=== PATIENT | female | born 1990 | race Caucasian/White ===

== ENCOUNTER 2022-06-14 12:21 | Outpatient (CLI) | payer OTHER, SELFPAY ==
[2022-06-14 12:45] VITALS: TEMP 36.8; O2SAT 98
[2022-06-14 12:46] VITALS: BP 121/70; PULSE 79
--- NOTE | 2022-06-14 14:22 | CRLHL7_ITS ---
For Patients: As a result of the Century Cures Act, medical imaging exams and procedure reports are released immediately into your electronic medical record. You may view this report before your referring provider. If you have questions, please contact your health care provider. INDICATION: reassurance. TECHNIQUE: Ultrasound OB pelvis transabdominal. Real-time marin-scale imaging of the fetus was performed without stress testing. COMPARISON: None. FINDINGS: Sonographic imaging demonstrates a single living intrauterine gestation. Fetus demonstrates a regular cardiac rate of 141 beats per minute. Fetus has a cephalic orientation. Amniotic fluid volume appears normal. Single deepest pocket measures 5.6 cm. breathing movements, motion, and tone were all observed. IMPRESSION: Single viable intrauterine with a biophysical profile 05/21. Dictated by Suresh Sinha MD @ 06/14/2022 3:43:50 PM (Electronically Signed)
[2022-06-14 14:34] VITALS: BP 115/66; PULSE 75
[2022-06-14 15:23] LABS: Amphetamine Screen Urine Negative (Negative); Barbiturate Screen Urine Negative (Negative); Benzodiazepines Screen Urine Negative (Negative); Cannabinoid Screen Urine Negative (Negative); Cocaine Screen Urine Negative (Negative); Methadone Screen Urine Negative (Negative); Methamphetamines Screen Urine Negative (Negative); Opiate Screen Urine Negative (Negative); Oxycodone Screen Urine Negative (Negative); Phencyclidine Screen Urine Negative (Negative); Tricyclic Antidepressant Urine Negative (Negative)
--- NOTE | 2022-06-14 15:26 | P.OBT_ITS ---
History of Present Illness History of Present Illness Date Seen: 06/14/22 History of Present Illness: TRANSFER OBSTETRICAL EXAM - OB? Sasha is a 31yo G 2, P 0, here today for her transfer Obstetrical visit. She is transferring from [facility] in [place]. Records are not here. Her initial NOB exam was performed by on 11/17/2021 and she has received routine care throughout her .?Her has mostly been uncomplicated. She has a history of one miscarriage around 7 weeks 06/2021. She had a yeast and bacterial infection 4 weeks ago, was treated with antibiotics and Monistat and her test of cure was negative. She is GBS+. She has a history of exercise asthma and has not needed her inhaler since the first trimester. She has anxiety that is well controlled with medication. She was in the clinic with her previous care provider yesterday where that had a non-reassuring NST. She was sent to L&D for a BPP and evaluation. While on the monitor there it was noted that she had one deceleration. Per the MD note it was a prolonged appearing late decel, FHT then retuned to baseline 130 mod leonor +accels. She was told she needed to induced. She desired not to have an AROM and Pitocin induction at that time and requested to try to induce labor naturally. She was 4-5cm/80%/-1 per the provider note. Per the phonograph mechanic notes after a few hours the patient continues to decline any induction options and desired to go home. She signed AMA paperwork. No BPP was preformed at that facility. On admission to this facility she was still 4cm/80%/-2. Contractions were mild and pt able to talk thought them. NST was reactive and BPP was 8/8. Pt given option to start for induction or discharge. She was reassured with no cervical change, the BPP, and reactive NST and she choose to discharge with labor precautions reviewed. She desires transfer of care here for the remainder of her and delivery. ? ? Planned : Planned? ? ? Allergies: latex (rash and swelling, itchy)? PrePregnancy weight: 166lb? Current Medications: Lexapro, PNV, Pepcid? SOCIAL? ? Education: bachelors? ? Work: senior corporate accountant? ? Partner: Rony (stay at home)? ? Lives with: and his brother? ? Pets: none? ? Abuse: Denies past/present? ? Special Diet: Denies? ? Ok with a blood transfusion: yes? ? Culture or jewish beliefs: denies? RISK FACTORS? ? Exercise Times/wk: walks 5 times per week? ? Depression/Anxiety: anxiety on Lexapro? ? Seat Belt Use: Routinely ? Smoking: Denies past/present? ? Alcohol/day: Denies while ? ? Caffeine: tea daily? ? Drug Use: Denies past/present? ? MRSA: Denies? Plan for feeding baby: yes ? ?? OB Labs:? ? Blood type: O+, antibody screen negative.? ? Hgb (11/22/21): 13.0? ? Platelets (11/22/21): 335? ? Rubella: Immune? ? RPR: non-reactive? ? HBsAg: negative? ? HIV: negative? ? GC/Chlamydia: negative/negative? ? Pap (11/17/21): negative? ? Genetic screening: NIPT negative? 1hr gtt: declined. tested BS x1 week. Fasting max 90x1. PP one at 160 the rest 83-128.? ? GBS (06/01/22): positive? Hep C (11/22/21): negative? ?? IMAGING:? ? 1st trimester: 11/17/21at 9.5 weeks per US, 9.3 per LMP (09/12/2021). FHR 175? ? Anatomy scan: 01/24/2022. FHR 150, cervical length 3.8, EFW 295 grams, grossly normal? ? Others: none? ? Transfer Assessment and Plan:? ASSESSMENT /PLAN? ? G 2 P 0 at 39.2 weeks by LMP? ? Normal Transfer visit.? ? Return to office in 1 weeks? ? Records received and reviewed? ?? Transfer Ob teaching reviewed, including:? ? How the practice works? ? OB Schedule - Visits/tests? ? Vitamins? ? -PNV w/ DHA or add fish oil? ? -calcium? ? -Vitamin D (2,000-4,000 IU)? ? -Vitamin C 500 if smoking? ? Warnings/when to call? ? -Bleeding? ? -vomiting/diarrhea? ? -UTI/Vaginal infections? ? -fever? ? -swelling/blood clot? ? -trauma? ? Baby moving naturally: Yes (decreased in size of movements but still feeling movements) Bleeding: No Contractions: Yes Leaking fluid: No Discharge: No Heartburn: Yes (pepcid) Back pain: No Meds Home Medications and Allergies Home Medications Medication Instructions Recorded Confirmed Type escitalopram oxalate 20 mg tablet 20 mg PO DAILY 06/14/22 06/14/22 History (Lexapro) famotidine 20 mg tablet (Acid 20 mg PO DAILY 06/14/22 06/14/22 History Advice Nurse (famotidine)) Allergies Allergy/AdvReac Type Severity Reaction Status Date / Time latex Allergy Intermediate Rash Verified 06/14/22 16:53 PFSH Surgical History (Updated 06/14/22 @ 15:51 by Kenzie Burton CNM) History of eye surgery Hx of LASIK [place] teeth extracted Family History (Updated 06/14/22 @ 15:54 by Kenzie Burton CNM) Maternal Grandmother Diabetes Stroke Kidney problem Maternal Grandfather Diabetes Paternal Grandfather Lazy eye Mother Healthy adult Social History (Updated 06/14/22 @ 16:51 by Kenzie Burton CNM) Are you following a diet prescribed by a doctor: No Are you following a special diet: No Previous occupational history: senior corporate accountant Highest level of school completed/degree received: Bachelor's degree Physical activity type: walking How many days of moderate to strenuous exercise, like a brisk walk, did you do in the last 7 days: 5 Smoking Status: Never smoker Caffeine: Yes (lass than 100mg per day) History History 2 Elective abortions Para 0 Spontaneous abortions Hx # Term Pregnancies Ectopic pregnancies Hx # Pregnancies Multiple births Number of Living Children 0 OB - H&P: Exam Physical Exam Vital signs: Temp Pulse BP Pulse Ox 98.3 F 75 115/66 98 06/14/22 12:45 06/14/22 14:34 06/14/22 14:34 06/14/22 12:45 Constitutional Constitutional: no acute distress Routine HEENT Exam Head: Present normal inspection Eye: Present normal appearance ENT: Present normal exam and normal external ear exam Routine Neck Exam Neck: Present full ROM Routine Respiratory Exam Respiratory: Present CTA bilaterally Routine Cardiovascular Exam Cardiovascular: RRR Routine Exam Perineum Description: Normal Detailed Labor and Delivery Exam Patient Gravid: yes Dilation (cm): 4 Effacement (%): 80 Cervix position: posterior (off to the right) Consistency: medium Contraction frequency (min): 5 (5-7 per pt report. feels them as tightening with baby movements) Tachysystole: No Contraction intensity: Mild Fetus (Single) Station: -2 Heart Rate Baseline: 135 Monitor Accelerations: Present Monitor Decelerations: None Robotics Specialist Variability: Moderate (11-25) (6-25) Routine Extremities Exam Extremities: Present full ROM Routine Back/Spine/Pelvis Exam Back/Spine: full ROM Routine Neurological Exam Present alert and oriented X3 Routine Psychiatric Exam Present normal affect and normal thought process Results Labs Laboratory Tests 06/14/22 06/14/22 06/14/22 Range/Units 14:52 14:52 14:52 WBC Pending RBC Pending Hgb Pending Hct Pending MCV Pending MCH Pending MCHC Pending Plt Count Pending Urine Opiates Screen Negative (Negative) Ur Oxycodone Screen Negative (Negative) Urine Methadone Screen Negative (Negative) Ur Propoxyphene Screen Negative (Negative) Ur Barbiturates Screen Negative (Negative) U Tricyclic Antidepress Negative (Negative) Ur Phencyclidine Scrn Negative (Negative) Ur Amphetamines Screen Negative (Negative) U Methamphetamines Scrn Negative (Negative) U Benzodiazepines Scrn Negative (Negative) Urine Cocaine Screen Negative (Negative) U Marijuana (THC) Screen Negative (Negative) Hepatitis C Antibody Pending Assessment and Plan Assessment and plan (1) Supervision of normal in third trimester: Status: Acute Assessment and Plan: Discharge home. Labor signs reviewed. Mode of transport: Private Car Plan at 39.2 weeks Transfer of care
[2022-06-14 16:08] LABS: Hematocrit 36.7 % (33.0-51.0); Hemoglobin* 12.2 gm/dL (12.0-16.0); Mean Corpuscular HGB Conc 33 gm/dL (32-36); Mean Corpuscular Hemoglobin 32 pg (26-34); Mean Corpuscular Volume 96 fL (80-100); Platelet Count* 322 K/uL (140-440); Red Blood Count 3.84 m/uL (4.00-5.20); Slide Review Reflex No; White Blood Count* 9.89 K/uL (4.50-11.00)
--- NOTE | 2022-06-14 16:54 | PC.OBNST ---
NST Note NST Note Start: 06/14/22 12:32 Freq: ONCE Status: Active Protocol: Document 06/14/22 15:39 [facility] (Rec: 06/14/22 15:43 [facility] [id number]) NST Note 2 Para (# of births) 0 EDC 06/19/22 Gestational Age In Weeks & Days 39 Weeks & 2 Days Patient Presented with Complaint(s) of Contractions/cramping, Decreased movement,Other Other Complaints Pt had non-reassuring NST at [place] on 06/13/2022. BPP performed after reactive NST obtained on 06/14/2022 Reactive Yes Appropriate for Gestational Age Yes RONNIE Wilson RN Date 06/14/22 Reactive Yes Appropriate for Gestational Age Yes RONNIE Snow RNC Date 06/14/22 OB NST charge Yes Complete NST Note via Write Note Yes The provider's electronic signature indicates the NST is reactive/appropriate for gestational age. *Note to provider: If an addendum is required, open the patient's chart and click on the note under the Nurse/Allied Health tab.
[2022-06-14 17:48] LABS: Hepatitis C Virus Antibody* Negative (Negative)
== END 2022-06-14 16:32 | disposition home or self-care (01) ==
LOC: OB OUT 12:26 → OB 12:34
PROVIDERS: Advanced Practice Midwife; Visit Provider Advanced Practice Midwife
DX: Z34.93 Encounter for supervision of normal pregnancy, unspecified, third trimester (principal)
CPT/HCPCS: 36415; 59025; 76819; 80306; 85027; 86803; 86850; 86900; 86901; 99213

== ENCOUNTER 2022-06-16 17:21 | Inpatient (IN) | payer OTHER, SELFPAY ==
[2022-06-16] VITALS (7 sets, daily range): BP systolic 110–126; BP diastolic 63–74; PULSE 71–96; RESP 18–22; TEMP 36.8–37.2; O2SAT 100
[2022-06-16] MEDS: AMPICILLIN 2 GM in 0.9 % SODIUM CHLORIDE Mini-bag 100 ML IVPB (17:29)
[2022-06-16] MEDS: LACTATED RINGERS 1000 ML 1,000 ML 125 ML IV (17:36)
[2022-06-16] MEDS: ONDANSETRON 2 MG/ML inj 4 MG IV ×2 (17:48→22:08)
--- NOTE | 2022-06-16 18:09 | P.LDBA_ITS ---
Subjective History of Present Illness Time Seen by Provider: 17:40 Date Seen: 06/16/22 Narrative: Patient is being admitted to Labor and Delivery for spontaneous onset of labor. She is a 32 year old at 39.4 weeks gestation. She transferred from [facility] two days ago. Her H&P was documented then by Leelee Burton CNM. Please see this for further details. Records have been received and reviewed and documented in her H&P. She is hoping for a waterbirth, at this time the room is occupied. OB Problem List: 1. Late transfer of care 39.2 weeks 1. Asthma-exercise induced (no inhaler since 1st trimester) 3. Latex allergy 4. Anxiety-on Lexapro OB Labs:? ? Blood type: O+, antibody screen negative.? ? Hgb (11/22/21): 13.0? ? Platelets (11/22/21): 335? ? Rubella: Immune? ? RPR: non-reactive? ? HBsAg: negative? ? HIV: negative? ? GC/Chlamydia: negative/negative? ? Pap (11/17/21): negative? ? Genetic screening: NIPT negative? 1hr gtt: declined. tested BS x1 week. Fasting max 90x1. PP one at 160 the rest 83-128.? ? GBS (06/01/22):?positive? Hep C (11/22/21): negative? ?? IMAGING:? ? 1st trimester: 11/17/21at 9.5 weeks per US, 9.3 per LMP (09/12/2021). FHR 175? ? Anatomy scan: 01/24/2022. FHR 150, cervical length 3.8, EFW 295 grams, grossly normal? ? Others: none? OB - H&P: Exam Physical Exam: Vital signs: Temp Pulse BP Pulse Ox 98.2 F 74 114/63 100 06/16/22 17:25 06/16/22 18:06 06/16/22 18:06 06/16/22 17:25 Constitutional: Constitutional: moderate distress Routine Neck Exam: Neck: Present full ROM Detailed Neck Exam: Thyroids: Comments: Supple Routine Respiratory Exam: Respiratory: Present CTA bilaterally Routine Cardiovascular Exam: Cardiovascular: RRR Detailed Labor and Delivery Exam: Patient Gravid: yes Dilation (cm): 7 (Exam per RN) Effacement (%): 100 Cervix position: mid Contraction frequency (min): 3 Contraction duration (sec): 90 Tachysystole: No Contraction intensity: Moderate Fetus (Single): Station: -2 Heart Rate Baseline: 135 Monitor Accelerations: Present Monitor Decelerations: None Document Manager Variability: Moderate (11-25) Routine Extremities Exam: Extremities: Present full ROM and normal inspection Routine Back/Spine/Pelvis Exam: Back/Spine: full ROM Routine Skin Exam: Present intact Routine Neurological Exam: Present alert, oriented X3, moving all extremities and normal speech Routine Psychiatric Exam: Present normal affect and good judgment OB - Problem Based A/P Additional Plan (1) Normal labor: Status: Acute (2) Group B streptococcal infection during : Status: Acute (3) Anxiety: Problem details: 20mg Lexapro. Ativan PRN (not used in ). Status: Acute (4) Asthma: Problem details: Inhaler not used since 1st trimester Status: Acute Plan ASSESSMENT:? 30 at 39 4/7 weeks gestation? complicated by:?Anxiety & Asthma (exercise induced) Labor type: Spontaneous, Active labor? Category 1 FHR pattern.?? Labor complicated by: GBS + GBS positive? ? PLAN:? 1. Admit to Labor and Delivery. Routine intrapartum cares as ordered. Continue with expectant management? 2. Monitoring per policy, intermittent after reassuring NST? 3. Planning unmedicated . Desires water . Consent signed. Hep C negative. Candidate for analgesia of choice if desired. Will plan for labor management in standard tub and get out of delivery if necessary. If possible, will move her to waterbirth room when avaliable. 4. Patient encouraged to reposition and ambulate to promote physiologic labor and .? 5. GBS phrophylaxis initiated for GBS positive status. Will treat with antibiotics per protocol. 6. Anticipate ? Delivery/Labor/Induction Plan Plan: expectant management
[2022-06-16 19:33] LABS: SARS PCR* Negative SARS-CoV-2 (Negative)
[2022-06-16] MEDS: AMPICILLIN 1 GM in 0.9 % SODIUM CHLORIDE Mini-bag 100 ML IVPB (21:28)
--- NOTE | 2022-06-16 22:46 | PM.OBPNL ---
Pain Control Date Seen: 06/16/22 Pain control: tolerating well Comments: Sasha is coping WELL with labor pain/contractions. She is currently being supported by and chiropractic. Understands the current plan of care. Questions answered to her satisfaction. Reports concerns regarding: interested in waterbirth, wondering if tub room is avaliable. She would like to continue with positioning and tub for comfort and pain management. Contractions Monitor mode: Palpation Contraction frequency: 3 Contraction pattern: Regular Contraction intensity: Moderate Pelvic Exam Comments: Deferred at this time Fetus (Single) Comments: Intermittent Monitoring: reassuring Assessment and Plan Assessment: active labor Plan: continue present management Comments: ASSESSMENT:? 30 at 39 5/7 weeks gestation? complicated by:?Asthma and Anxiety Labor type: Spontaneous, Active labor? Intermittent Auscultation: reassuring Labor complicated by: GBS +? GBS positive? ? PLAN:? 1. Routine intrapartum cares as ordered. Continue with expectant management? 2. Monitoring per policy, intermittent? 3. Planning unmedicated . Desires water . Consent signed. Hep C negative. Candidate for analgesia of choice if desired. Room for waterbirth just cleaned, patient transferring to tub room for possible waterbirth.?? 4. Patient encouraged to reposition and ambulate to promote physiologic labor and .? 5. GBS prophylaxis initiated for GBS positive status. Will treat with antibiotics per protocol. 6. Anticipate ?
[2022-06-17] VITALS (18 sets, daily range): BP systolic 111–143; BP diastolic 65–81; PULSE 68–102; RESP 16–22; TEMP 36.6–37.4; O2SAT 98–99; BMI 31.1
--- NOTE | 2022-06-17 00:35 | PM.OBPNL ---
Pain Control Time Seen by Provider: 23:00 Date Seen: 06/16/22 Pain control: tolerating well Comments: Subjective: Sasha is coping well with labor contractions. She is currently being supported by her Rony & friend/chiropractor Jonelle. Understands the current plan of care. Questions answered to her satisfaction. Reports concerns regarding: pain and pushing, reviewed options and encouragement given. She would like to continue with hydrotherapy and position changes for comfort and pain management.?? Contractions Monitor mode: Palpation Contraction frequency: 3 (q2-3 min, 90seconds long) Contraction pattern: Regular Contraction intensity: Moderate Pelvic Exam Comments: Offered cervical exam to check for progress/change, pt declines at this time Fetus (Single) Comments: Discussed option for AROM to facilitate labor progression, pt declines at this time Assessment and Plan Assessment: active labor Plan: continue present management Comments: ASSESSMENT:? 30 at 39 weeks 4days gestation? complicated by:?Anxiety & Asthma Labor type: Spontaneous, Active labor? FHR reassuring by intermittent doppler?? Labor complicated by: GBS+? GBS positive? PLAN:? 1. Routine intrapartum cares as ordered. Continue with expectant management? 2. Monitoring per policy, intermittent? 3. Planning unmedicated . Desires water . Consent signed. Hep C negative. Candidate for analgesia of choice.?? 4. Patient encouraged to reposition and ambulate to promote physiologic labor and .? 5. Offered cervical exam and/or AROM to encourage labor after 6 hours of active labor - with most recent exam 7cm @ 1700. Discussed risk of fatigue, stress or vague feeling of pressure or diminished urge with bulging bag. Reviewed that a cervical exam could help identify position, to assist with positions or identify reasons for stalled labor. Pt Declines at this time. 6. Anticipate ? ?
[2022-06-17] MEDS: OXYTOCIN 10 UNIT/ML INJ IM (02:51)
[2022-06-17] MEDS: LIDOCAINE 1% MDV 20 ML INJECTION (03:30)
--- NOTE | 2022-06-17 03:47 | P.OBPRC_ITS ---
Procedure Delivery date: 06/17/22 Procedure Done: Global (Recent transfer) Intrapartal Events: Other (Protracted active stage labor) Delivery monitor: external FHT (Intermittent Doppler) Route of delivery: Laceration description: Perineal - 2nd Degree (repaired with 3.0 Vicryl) Delivery repair: Vicryl (3.0) Estimated blood loss (mL): 320 (QBL 20, EBL 300) Anesthesia type: None Disposition: floor Narrative: The patient is a 32 year old G2 now P1 at 39 weeks 4days gestation that was adm itted to the Center on 06/16/22 for active labor. ? Labor Analgesia:? none ? Pitocin:? yes- for AMTSL ? Labor onset:? 06/16/2022 @ 1700 ? Complete:? assumed with pushing ? Pushing:? 06/17/2022 @ 0050 ? heart tones during second stage were reassuring by intermittent auscultation with Doppler. ? Patient was admitted for active labor and progressed normally. SROM noted at 0103 with clear fluid. Patient was assumed complete with pushing at 0050. of a viable female at 0235 in the tub. Vertex delivered OA. No nuchal cord or shoulder. Body delivered easily and without incident. Infant passed to mothers abdomen with a minimal cry. Cord was clamped and cut at > 6 minutes. APGARS were 7 at one minute and 8 at five minutes respectively. Mouth was bulb suctioned. Steading bleeding noted in tub, Pitocin IM given with pt consent. Baby skin to skin with dad while mom moved to bed and recovery initiated. Intact placenta with a 3 vessel cord delivered spontaneously at 0304. Fundus firm. 2nd degree identified and repaired in typical fashion with 3.0 Vicryl. QBL 20 cc, EBL 300. Mother and baby stable; initiated. Infant weight pending. ? Placenta delivered spontaneously and complete at 0304 with a 3 vessel cord. Waterbirth: yes ? Mother and infant were stable after delivery. ? Lacerations:? 2nd degree, repaired with 3.0 Vicryl. ? Blood loss: 320 mL. Blood loss measurement type: EBL ? Sponge and needles counts are correct. Infant Infant Gender: Female presentation: vertex Placental Delivery Description: Spontaneous Cord Description: 3 Vessels OB Vag Delivery Procedures Additional Procedures ECV: No Cook Catheter Insertion: No NST: No D&C: No Laceration Repair: Yes (2nd Degree Perineal, reparied with 3.0 Vicryl) Tubal Ligation : No Other: Yes (Waterbirth)
[2022-06-17] MEDS: IBUPROFEN 600 MG TABLET PO ×2 (07:42→20:47)
[2022-06-17] MEDS: BENZOCAINE/MENTHOL 1 EACH LOZENGE MUCOUS MEM (12:01)
[2022-06-17] MEDS: ACETAMINOPHEN 500 MG TABLET 1000 MG PO (13:51)
[2022-06-17] MEDS: CALCIUM CARBONATE 500 MG CHEW PO (20:47)
[2022-06-17] MEDS: ONDANSETRON ODT 4 MG TAB PO (20:48)
[2022-06-17] MEDS: LANOLIN CREAM 1 APPLIC TOPICAL (20:48)
[2022-06-17] MEDS: ESCITALOPRAM 10 MG TABLET 20 MG PO (22:57)
[2022-06-18 07:36] LABS: Hemoglobin* 10.4 gm/dL (12.0-16.0)
[2022-06-18 09:00] VITALS: BP 115/78; PULSE 78; RESP 16; TEMP 36.8; O2SAT 97
[2022-06-18] MEDS: ACETAMINOPHEN 500 MG TABLET 1000 MG PO (09:05)
[2022-06-18] MEDS: DOCUSATE SODIUM 100 MG CAPSULE PO (09:05)
[2022-06-18] MEDS: BENZOCAINE/MENTHOL 1 EACH LOZENGE MUCOUS MEM (09:07)
--- NOTE | 2022-06-18 11:19 | P.DS_ITS ---
DS: Providers Provider Date Seen: 06/18/22 Date of admission: 06/16/22 17:21 Admitting Clinician: Judith Chappell CNM Attending Physician on discharge: Nuris Harper CNM Date of Discharge: 06/18/22 DS: Diagnosis Discharge Diagnosis (1) state: Status: Acute (2) Anxiety: Status: Acute Problem details: 20mg Lexapro. Ativan PRN (not used in ). (3) Lactating mother: Status: Acute (4) Asthma: Status: Acute Problem details: Inhaler not used since 1st trimester Exam Const: Vital Signs, click to edit/add: Vital Signs - 24 hr 06/17/22 13:20 06/17/22 16:00 06/17/22 20:47 Temperature 98.1 F 98.1 F 99.3 F Pulse Rate [Pulse Oximeter] 78 68 Respiratory Rate 16 16 Blood Pressure [Le ft Arm] 115/77 113/75 Pulse Oximetry 99 98 Oxygen Delivery Me thod Room Air Room Air 06/17/22 19:45 06/17/22 23:30 06/18/22 09:00 Temperature 99.3 F 98.2 F 98.2 F Pulse Rate [Pulse Oximeter] 78 70 78 Respiratory Rate 16 16 16 Blood Pressure [Le ft Arm] 113/75 111/75 115/78 Pulse Oximetry 98 98 97 Oxygen Delivery Me thod Room Air Room Air Room Air Documenting provider has reviewed patient's vital signs: yes Common normals: no apparent distress, oriented x3, healthy appearing, alert and well nourished General appearance: cooperative, well kempt and well developed Orientation/consciousness: Yes awake, Yes oriented to person, Yes oriented to place and Yes oriented to time HENMT: Common normals: normocephalic and external nose normal Head and scalp: normocephalic Nose: external nose normal Eye: General eye: normal appearance of both eyes Neck & C-Spine: Common normals: full ROM and supple General: normal visual inspection Cervical spine: cervical ROM normal Chest: Common normals: inspection of chest normal and palpation of chest normal Chest: symmetrical chest wall rise Resp: Common normals: normal respiratory effort, no retractions, no use of accessory muscles and clear to auscultation bilaterally Effort & inspection: able to speak in complete sentences Auscultation: clear to auscultation bilaterally Cardio: Common normals: regular rate and regular rhythm Rate: regular rate Rhythm: regular rhythm GI: Common normals: Normal to inspection, nondistended, normoactive bowel sounds present and soft to palpation Inspection: normal to inspection Auscultation: normoactive bowel sounds Palpation: soft and tender : Bimanual exam- vagina & uterus: other (Involuting) Uterus: U/U (Slightly displaced to the left, bladder full) and firm Lochia: small Uterus palpation: uterus tender Back & Pelvis: Common normals: thoracic and lumbar spine normal to inspection and no thoracic nor lumbar tenderness Thoracic spine/upper back: normal to inspection and thoracic ROM normal Lumbar spine/lower back: normal to inspection and lumbar ROM normal Extremity: Common normals: normal to inspection, full ROM and no pedal edema General: normal exam except as noted Neuro: Common normals: oriented x3 Sensorium/orientation: awake, alert, oriented to person, oriented to place and oriented to time Speech: speech normal Psych: Common normals: mental status grossly normal, thought process normal and speech normal Appearance: grossly normal and well kempt Attitude: calm and engaged Activity/motor behavior: appropriate eye contact Speech: normal speech Thought process: normal thought process Thought content: normal thought content Attention/concentration: attention grossly intact Memory/cognition: memory grossly intact Insight: insight good Judgement: judgment good Skin: Common normals: no rashes or lesions noted General skin exam: no rashes or lesions noted OB - DS: Summary Hospital Course Hospital Course: The patient is a 32 year old G 2 P 0 at 39 weeks 5 days gestation that was admitted to the Center on 06/16/22 for active labor. She had an uncomplicated vaginal delivery. Labor complicated by GBS+ status. She delivered a viable female , via waterbirth. She is breast feeding, which pt reports is going well. the patient has done well and is bonding well with . Peripartum Data delivery method: Vaginal Laceration description: Perineal - 2nd Degree (Repaired with 3.0 Vicryl) complications: none Gender: Female Infant Discharge Plan: Home Status at Discharge Functional status at discharge: independent ambulation Overall status at discharge: patient is progressing back to baseline Time Spent with Patient Time attestation: Total time spent providing and/or coordinating discharge services: Time spent: Less than 30 minutes Discharge Plan Discharge Disposition: Home, Self-Care Date of Admission: 06/16/22 17:21 Attending Provider on Discharge: Nuris Harper Condition: Stable Anticipated Discharge Date/Time: 06/18/22 11:27 Discharge Medications: New docusate sodium 100 mg Capsule 100 mg PO DAILY Qty: 90 0RF Rx Instructions: Take 2 times per day ibuprofen 600 mg Tablet 600 mg PO Q6H PRNQty: 90 0RF acetaminophen 500 mg Tablet 1,000 mg PO Q6H PRNQty: 0 0RF Continued escitalopram oxalate [Lexapro] 20 mg tablet 20 mg PO DAILY famotidine [Acid Tube Bender (famotidine)] 20 mg tablet 20 mg PO DAILY Discharge Orders: Discharge Order (Routine); Ordered 06/18/22 Ordered By: Nuris Harper Patient Education: OB Vaginal/Breast Feeding Activity Restrictions/Additional Instructions: Discharge instructions were reviewed with the patient including signs and symptoms of infection and home going medications Nothing vaginally for 6 weeks: no tampons or intercourse Do not drive while taking narcotic pain medication(s) Off Work or School for 6 weeks Symptoms to report to doctor: * Bleeding that saturates more than one pad per hour * Passing clots larger than the size of a golf ball * Pain not relieved by prescribed medication * Fever above 100.4 degrees Fahrenheit * A foul vaginal odor * Difficulty in emotions, mood, and functions * Thoughts of hurting yourself and/or * Painful, reddened area in your breast * Any drainage, redness, or tenderness in your IV/epidural site * Severe headache that doesn't improve after taking medications * Changes in vision, including temporary loss of vision, blurred vision, and/or light sensitivity * Upper abdominal pain (usually under ribs on the right side) * Decrease in urination or painful, frequent urinating * Chest pain * Shortness of breath * Tenderness or pain with redness and/swelling in the calf(s) of your leg 2-week visit: discuss feeding concerns, review control options and screen for anxiety/depression. 6-week visit for an annual exam. consultation services are available to all mothers and babies for the first year after delivery.? To make an appointment, please call [phone]. Activity Level: Activity as Tolerated Discharge Diet: Regular Follow Up Appointments: [facility] [Provider Group] (2 & 6 weeks) Forms: [email or web address] Info Instructions
== END 2022-06-18 14:17 | disposition home or self-care (01) | DRG 807 ==
LOC: OB OUT 17:21 → OB 17:21
PROVIDERS: Admitting Provider Advanced Practice Midwife; Visit Provider Advanced Practice Midwife
DX: O99.824 Streptococcus B carrier state complicating childbirth (principal); Z37.0 Single live birth; O70.1 Second degree perineal laceration during delivery; O99.344 Other mental disorders complicating childbirth; F41.9 Anxiety disorder, unspecified; J45.909 Unspecified asthma, uncomplicated
CPT/HCPCS: 36415; 85018; 87635; 99213; A9270; J0290; J2405; J2590; J7120

== ENCOUNTER 2022-08-01 10:48 | Outpatient (CLI) | payer OTHER, SELFPAY | END 2022-08-01 10:49 | disposition home or self-care (01) | LOC: NFLDREF 10:50 | PROVIDERS: Visit Provider Advanced Practice Midwife | DX: R32 Unspecified urinary incontinence (principal) | CPT/HCPCS: 87086 ==

== ENCOUNTER 2022-08-10 14:32 | Outpatient (CLI) | payer OTHER, SELFPAY ==
--- NOTE | 2022-08-10 18:01 | W.PM.LAC.MC ---
Consult Note - Mom Date of Visit Date of visit: 08/10/22 residential property consultant: Ambreen Mcgill Visit Code: Visit Patient's Information Phone number: [phone] : 1 Para: 1 Allergies latex Allergy (Intermediate, Verified 08/01/22 09:04) Rash Mother's Medical History: Medical History (Updated 08/01/22 @ 13:14 by Nuris Harper CNM) Group B streptococcal infection during Delivery Information Delivery type: Vaginal Weeks Gestation: 39.5 Gestational Age: AGA Baby's Information Baby's Age at Visit: 7 weeks Reason for Consult Reason for Consult: mom requesting help with her pump Past Experience Past Experience: No Current Frequency of Day Feedings: baby is bottle fed EBM every 3 - 4 hours, starting to sleep longer at night Pumping Pumping: Yes (mom pumps every time baby takes a bottle) Quantity Pumped: 4 - 6 oz total each time Supplementing EMB Supplement: Yes (baby takes 4 oz EBM every 3 - 4 hours) Formula Supplement: No Baby Elimination Number of Wet Diapers a Day: about every feeding Number of BM a Day: 1 - 2 times/day Breast/Nipple Condition Breast Information: WNL Maternal Nipple Condition - Left: Common Nipple Maternal Nipple Condition - Right: Common Nipple Sore Nipples: Yes Assessments/Interventions Assessments/Interventions: Patient presents for a consult, she's exclusively pumping and has had difficulty for 2 - 3 weeks; also has had three episodes of mastitis, two which required abx. She switched to exclusive pumping shortly after D/C d/t pain with latching baby and is currently pumping every time baby takes a bottle (usually every 3 - 4 hours). She gets between 4 - 6 oz total each time she pumps and baby takes a 4 oz bottle with paced feeding. She reports b/c the the nipple damage continued to get worse with pumping she had a phone consult with a travel consultant who suggested she try healing her nipples with homemade APNO and once they felt better switch to 20 mm flanges. Patient reports she switched to the smaller flanges right away and has been using the APNO for about one week. She noticed an improvement in her nipples and in the comfort with the smaller flanges, but is still unsure she has the correct size; also has questions about the pump in general. Breasts are not equal in size with the left being about 1/3 larger. Both breasts have rounded lower quadrants and the intramammary distance is <1.5 inches. Nipples are everted and no damage is visible, but they look irritated at the base where it meets the areola; mom states since using the smaller flanges and APNO this has improved. The nipples measure 15 - 17 mm. Mom completed a pumping session in clinic and got 6 oz. As the session progressed her nipples began to turn purple at the tips and a small portion of the areola began to be pulled into the flange. She denied any other s/s of vasospasm so reviewed the color change is probably d/t an incorrect flange size. Plan: 1. Suggested she order inserts for her flanges in sizes closer to 15 - 17 mm (she also needs to order the correct duckbill as she's using one from [employer]). 2. We reviewed the two modes on her pump, the vacuum settings, and cycle times. She should experiment to see what gives her the best results but it should always be comfortable. 3. Suggested she pump for 15 - 20 minutes (25 minutes maximum if her milk is still flowing at 20 minutes) as she was pumping up to 45 minutes. 3. Flange Fit guide given for added tips and information on comfortable and productive pumping. 5. Encouraged her to come to [facility], otherwise will f/u by phone on 08/17. Meds Home Medications and Allergies Home Medications Medication Instructions Recorded Confirmed Type escitalopram oxalate 20 mg tablet 20 mg PO DAILY 06/14/22 08/01/22 History (Lexapro) famotidine 20 mg tablet (Acid 20 mg PO DAILY 06/14/22 08/01/22 History Auxiliary Equipment Tender (famotidine)) Allergies Allergy/AdvReac Type Severity Reaction Status Date / Time latex Allergy Intermediate Rash Verified 08/01/22 09:04
== END 2022-08-10 14:33 | disposition home or self-care (01) ==
LOC: OB LAC 14:34
PROVIDERS: Visit Provider Advanced Practice Midwife
DX: Z39.1 Encounter for care and examination of lactating mother (principal)
CPT/HCPCS: 99211

== ENCOUNTER 2023-03-14 07:30 | Outpatient (RCR) | payer OTHER, SELFPAY | END 2023-07-12 23:59 | disposition home or self-care (01) | PROVIDERS: Visit Provider Advanced Practice Midwife | DX: R10.2 Pelvic and perineal pain (principal); Z51.89 Encounter for other specified aftercare | CPT/HCPCS: 97110; 97140; 97162; 97535 ==

== ENCOUNTER 2025-05-27 09:14 | Emergency (ER) | payer OTHER, SELFPAY ==
--- OUTSIDE RECORDS SUMMARY | 2025-05-27 09:16 | XMS_ITS | Clinical Summary ---
Author Organization [facility] Address [address] [place] [id number] Care Team Providers Care Dermatologist Name Role Phone Aruna Stiles APRN, CNP Primary Care Provider Source Comments You are receiving this document as you are listed as the primary care provider,follow-up provider, or the patient has been referred to you for consultation.This is in compliance with the Medicare andMedicaid EHR Incentive Program,which states Providers who transition their patient to another setting of careor provider of care or refers their patient to another provider of care shouldprovide summary care record for each transition of care or referral. Povio Allergies Active Allergy Reactions Criticality Noted Date Comments Latex Rash 08/19/2014 Medications Spacer/Aero-Holdin g Senait ([facility]) MISCIndications:Mi ld intermittent asthma without complication (HRC) Use as directed with inhaler 1 Each 10/31/19 21 Active ALBUterol sulfate HFA 108 (90 Base) MCG/ACT inhalerIndications :Wheezing Inhale 2 Puffs every 4 hours as needed for Wheezing. 3 Each 1 10/12/20 21 Active Additional Information Patient not taking.Reported on 06/13/2022 Vit-Fe Fumarate-FA ( OR) Active escitalopram oxalate (LEXAPRO) 20 MG tabletIndications: TIMI (generalized anxiety disorder) (HRC) Take 1 tablet by mouth once daily 90 Tablet 2 03/06/20 22 Active ondansetron (ZOFRAN-ODT) 4 MG disintegrating tablet Dissolve 1 Tablet (4 mg) by mouth every 8 hours as needed for Nausea. 10 Tablet 09/25/2024 5:08 PM HEEL SANDER 09/25/20 24 Active cyclobenzaprine (FLEXERIL) 5 MG tablet Take 1-2 Tablets (5-10 mg) by mouth three times a day as needed for Muscle Spasms. 20 Tablet 09/25/2024 5:08 PM HEEL SANDER 09/25/20 24 Active Active Problems Problem Noted Date Diagnosed Date Supervision of normal first , antepartu m 01/24/2022 Asthma affecting , antepartum Anxiety in , antepartum 11/17/2021 Mild intermittent asthma 07/17/2018 Irritable bowel syndrome 10/01/2014 TIMI (generalized anxiety disorder) 03/02/2014 Overview (06/05/2017): Anxiety state, unspecified Hyperhidrosis 02/10/2014 GERD (gastroesophageal reflux disease) Resolved Problems Problem Noted Date Diagnosed Date Resolved Date Anxiety state 03/02/2014 05/02/2016 Overview (06/05/2017): Anxiety state, unspecified Lactose intolerance 02/10/2014 08/16/20 21 URI (upper respiratory infection) 11/06/2013 02/10/2014 Acid reflux 09/29/2013 05/02/2016 Immunizations Immunization Administration Dates Next Due TDAP (BOOSTRIX) 11/05/2012 Tdap 03/26/2022 Family History Medical History Relation Name Comments No Known Problems Father Unknown No Known Problems Mother Diabetes Maternal Grandfather Diabetes, Type II Maternal Grandfather High Blood Pressure Maternal Grandfather High Cholesterol Maternal Grandfather Cancer Maternal Grandmother Cervica l cancer. Cancer, Ovary Maternal Grandmother Depression Maternal Grandmother Diabetes Maternal Grandmother Diabetes, Type II Maternal Grandmother Heart Disease Maternal Grandmother High Blood Pressure Maternal Grandmother High Cholesterol Maternal Grandmother Kidney/Bladder Disease Maternal Grandmother Stroke Maternal Grandmother Relation Name Status Comments Father Unknown Alive Mother Alive Maternal Grandfather Alive Maternal Grandmother Paternal Grandfather Unknown Alive Paternal Grandmother Unknown Alive Social History Tobacco Use Types Packs/Day Years Used Date Smoking Tobacco: Never Smokeless Tobacco: Never Alcohol Use Standard Drinks/Week Comments Not Currently 0 (1 standard drink = 0.6 oz pur e alcohol) PHQ-2 Answer Date Recorded PHQ-2 Score 0 12/07/2020 Depression Answer Date Recor ded Last EPDS Total Score 2 11/16/2024 Last EPDS Self Harm Result Not on file 11/16 Comments No Sex and Gender Information Value Date Recorded Sex Assigned at Not on file Legal Sex Female 8:00 AM CDT Gender Identity Not on file Sexual Orientation Not on file 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 file Not on file Not on file Last Filed Vital Signs Vital Sign Reading Time Taken Comments Blood Pressure 126/79 09/25/2024 2:49 PM HEEL SANDER Pulse 92 09/25/2024 3:00 PM HEEL SANDER Temperature 36.8 C (98.3 F) 09/25/2024 3:04 PM HEEL SANDER Respiratory Rate 20 09/25/2024 3:04 PM HEEL SANDER Oxygen Saturation 100% 09/25/2024 3:00 PM HEEL SANDER Inhaled Oxygen Concentration - - Weight 89.6 kg (197 lb 8 oz) 06/13/2022 2:48 PM CDT Height 170.2 cm (5' 7) 11/17/2021 1:57 PM HEEL SANDER Body Mass Index 30.93 11/17/2021 1:57 PM HEEL SANDER Plan of Treatment Health Maintenance Due Date Last Done Comments HepB Vaccine (1) 2011 Pneumococcal Vaccine (1 of 2 - PCV) 2011 Adult Preventive Visit 12/07/2022 12/07/2020, 2018 Asthma ACT (score of 20 or higher) 06/04/2023 06/04/2022, 12/07/2020, 08/03/2019, Additional history exists COVID-19 Vaccine ( season) 2024 Cervical Cancer Screening 11/17/20242021, 12/31/2018, 12/31/2018, Additional history exists Influenza Vaccine (#1) 2025 DTaP/Tdap/Td Vaccine (3 - Tdap) 03/26/2032 03/26/2022, 11/05/2012 Zoster/Shingles Vaccine (1 of 2) 2042 HIV Screening (Preventive Services) Completed 11/22/2021, 12/07/2020 Hep C Screening (Preventive Services) Completed 11/22/2021 HPV Vaccine Aged Out No longer eligi ble based on patient's age to complete this topic HepA Vaccine Aged Out No longer eligi ble based on patient's age to complete this topic Hib Vaccine Aged Out No longer eligi ble based on patient's age to complete this topic IPV (Polio) Vaccine Aged Out No longe r eligible based on patient's age to complete this topic MCV4 Vaccine Aged Out No longer eligi ble based on patient's age to complete this topic Meningococcal B Vaccine Aged Out No l onger eligible based on patient's age to complete this topic Procedures Procedure Name Priority Date/Time Associated Diagnosis Comments HIV 1/2 AG/AB 4TH GEN Routine 11/22/2021 5:30 PM HEEL SANDER Supervision of normal first , antepartum HEPATITIS C ANTIBODY, WITH REFLEX (ANTI-HCV) Routine 11/22/2021 5:30 PM HEEL SANDER Supervision of normal first , antepartum CYTOLOGY (PAP) Routine 11/17/2021 2:40 PM HEEL SANDER Pap smear for cervical cancer screening from Last 3 Months or Most Recently Relevant to Health Maintenance Results * HIV 1/2 Ag/Ab 4th Generation (11/22/2021 5:30 PM HEEL SANDER) HIV 1/2 Antigen/Antib rell (4th generation) Negative (Non Reactive) Negative (Non Reactive) 11/22/2021 10:09 PM HEEL SANDER [facility] Comment:HIV-1 p24 Antigen an d HIV-1/HIV-2 Antibody not detected Blood Venipuncture / Unknown 11/22/2021 5:30 PM HEEL SANDER 11/22/2021 5:30 PM HEEL SANDER us Eve Kahn DO LAB_1 Final Resul t [facility] [address] * Hepatitis C Antibody, with Reflex (11/22/2021 5:30 PM HEEL SANDER) Hepatitis C Antibody Negative (Non Reactive) Negative (Non Reactive) 11/22/2021 10:09 PM HEEL SANDER [facility] Comment:Antibodies to HCV no t detected. Does not exclude the possiblity of exposure to HCV. Blood Venipuncture / Unknown 11/22/2021 5:30 PM HEEL SANDER 11/22/2021 5:30 PM HEEL SANDER us vEe Kahn DO LAB_1 Final Resul t [facility] [address] * PAP Test (11/17/2021 2:40 PM HEEL SANDER) Case Report Pap Case: [id number] Authorizing Provider: Eve Kahn DO Collected: 11/17/2021 1440 Ordering Location: [place] [address] Received: 11/17/2021 1451 Obstetrics/Gynec ology First Screen: Brittany Gonzalez CT (ASCP) Specimen: Pap Test, Routine, Cervix/Endocervix 11/25/2021 1:11 PM HEEL SANDER [facility] Pap Specimen Adequacy Satisfactory for evaluation, endocervical/alexis sformation zone component present. 11/25/2021 1:11 PM HEEL SANDER [facility] Pap Interpretation (NILM) Negative for intraepithelial lesion or malignancy. 11/25/2021 1:11 PM HEEL SANDER [facility] at 1311 HEEL SANDER Pap Other Findings Fungal organisms morphologically consistent with Katie spp. 11/25/2021 1:11 PM HEEL SANDER [facility] Pap Disclaimer The Pap test is a screening test designed to aid in the detection of cervical cancer and its precursor lesions. It is not a diagnostic procedure and should not be used as the sole means of detecting cervical cancer. Both false-positive and false-negative results may occur. 11/25/2021 1:11 PM HEEL SANDER [facility] Gross Description The specimen is received in SurePath fixative and properly labeled. 1 Pap-stained SurePath slide is prepared. 11/25/2021 1:11 PM HEEL SANDER [facility] Embedded Images 2 1:11 PM HEEL SANDER [facility] Other Specimen Type ENTIRE ENDOCERVIX / Unknown 11/17/2021 2:40 PM HEEL SANDER 11/17/2021 2:51 PM HEEL SANDER Comment:LMP: Patient's last menstrual period was 09/12/2021. us Eve Kahn DO LAB PATHOLOGY Final Resul t [facility] [address] [place] [address], [facility] from Last 3 Months or Most Recently Relevant to Health Maintenance Insurance [facility] Care Teams Dermatologist Relationship Specialty Start Date End Date Aruna Stiles APRN, TRAFFIC INSPECTOR [address] [place] [address] PCP - General Nurse Practitioner 09/25/24
--- OUTSIDE RECORDS SUMMARY | 2025-05-27 09:16 | XMS_ITS | Clinical Summary ---
Author Organization [facility] Address [address] [place] [id number] Care Team Providers Care Platen Builder Up Name Role Phone Camille Pavon Primary Care Provider [phone] [facility] Unavailable [phone] Allergies Active Allergy Reactions Criticality Noted Date Comments Latex Rash 08/19/2014 Medications escitalopram oxalate (LEXAPRO) 10 mg tablet Take 10 mg by mouth once daily. Active DICYCLOMINE HCL (DICYCLOMINE ORAL) Take 1 capsule by mouth 4 times daily. Active OMEPRAZOLE ORAL Take by mouth. Active meclizine (ANTIVERT) 12.5 mg tabletIndicatio ns:Vertigo Take 2 tablets by mouth 3 times daily if needed. 15 tablet 10/07/2016 Active vit/iron fum/folic ac ( 10/14 ORAL) Active albuterol HFA (PRO-AIR; VENTOLIN; PROVENTIL) 90 mcg/actuation inhaler Inhale 2 Puffs by mouth every 4 hours if needed. 10/12/2021 Active Active Problems Problem Noted Date Diagnosed Date Antepartum non-reassuring fe hrea heart rate or rhythm affecting care of mother 06/13/2022 Supervision of normal first , antepartu 01/24/2022 Anxiety in , antepartum 11/17/2021 Asthma affecting , antepartum Social History Tobacco Use Types Packs/Day Years Used Date Smoking Tobacco: Never Smokeless Tobacco: Never Tobacco Cessation:Counseling Given: No Alcohol Use Standard Drinks/Week Comments Never 0 (1 standard drink = 0.6 oz pur e alcohol) Social Connections Answer Date Recorded Do you often feel lonely or isolated from those around you? 0 11/14/2024 Financial Resource Strain Answer Date R ecorded Difficulty of Paying Living Expenses 3 11/14/2024 Difficulty of Paying Living Expenses Not on file 11/14/2024 Food Insecurity Answer Date Recorded Do you worry your food will run out before you are able to buy more? 1 11/14/2024 Transportation Needs Answer Date Record ed Does lack of transportation keep you from medica l appointments? 1 11/14/2024 Does lack of transportation keep you from work, meetings or getting things that you need? 1 11/14/2024 Housing Stability Answer Date Recorded What is your housing situation today? 1 11/14/2024 Utilities Answer Date Recorded Do you have trouble paying f or utilities (for example, heat, electricity, water, phone)? 1 11/14/2024 Comments No Sex and Gender Information Value Date Recorded Sex Assigned at Not on file Legal Sex Female 6:37 PM HONING MACHINE SET UP OPERATOR TOOL Gender Identity Not on file Sexual Orientation Not on file Obstetrics History Para Term AB IAB SAB Ectopic Multiple Livin g Live Births 2 1 1 Date Outcome GA Total Labor Labor/2nd/3rd Weight Sex Type Anes PTL Kalina A1 A5 Name Clin 021 SAB Last Filed Vital Signs Vital Sign Reading Time Taken Comments Blood Pressure 104/67 11/14/2024 9:46 AM HONING MACHINE SET UP OPERATOR TOOL Pulse 77 11/14/2024 9:46 AM HONING MACHINE SET UP OPERATOR TOOL Temperature 36.7 C (98.1 F) 11/14/2024 9:46 AM HONING MACHINE SET UP OPERATOR TOOL Respiratory Rate 18 11/14/2024 9:46 AM HONING MACHINE SET UP OPERATOR TOOL Oxygen Saturation 99% 11/14/2024 9:46 AM HONING MACHINE SET UP OPERATOR TOOL Inhaled Oxygen Concentration - - Weight 76.3 kg (168 lb 3.2 oz) 11/14/2024 9:46 A M HONING MACHINE SET UP OPERATOR TOOL Height 170.2 cm (5' 7) 10/07/2016 7:04 PM HONING MACHINE SET UP OPERATOR TOOL Body Mass Index 26.34 10/07/2016 7:04 PM HONING MACHINE SET UP OPERATOR TOOL Plan of Treatment Health Maintenance Due Date Last Done Comments Tetanus booster 2003 Depression screening for age 12+ 2004 HIV for age 15-65 2007 BMI (ht and wt on same day) for age 18+ 2010 Hepatitis C screening for ag e 18-79 2010 Hepatitis B series for 19+ ( 1 of 3 - 19+ 3-dose series) 2011 Pap test for age 21-65 2013 COVID-19 vaccine series ( - 2023-25 season) 2024 Influenza Vaccine (#1) 2025 Pneumococcal series for age 6-49 Aged Out No longer eligible based on patient's age to complete this topic Insurance [facility] Advance Directives * Full Code (Latest Code Status on File) Date Activated Date Inactivated Comments 06/13/2022 4:58 PM 06/14/2022 12:20 AM Question Answer Comments Code Status Discussion: Reviewed Preferences Care Teams Platen Builder Up Relationship Specialty [place] [address] [place] [address] PCP - General Physician Certified Registered [employer] [facility] [address] [place] [address] 08/12/21
[2025-05-27 09:38] VITALS: BP 116/76; PULSE 62; RESP 16; TEMP 36.5; O2SAT 99; BMI 25.8
--- NOTE | 2025-05-27 09:56 | CRLHL7_ITS ---
For Patients: As a result of the Cures Act, medical imaging exams and procedure reports are released immediately into your electronic medical record. You may view this report before your referring provider. If you have questions, please contact your health care provider. Indication: Headache. Eye pain. Technique: MRI Head: Performed without IV gadolinium. MRI Orbits: Performed without IV gadolinium. Comparison: None relevant available. Findings: MRI Orbits: No evidence for mass lesion or infiltrating T2 signal abnormality. The globes, optic nerve complexes, extra-ocular muscle cones and lacrimal glands are symmetric and unremarkable. The paranasal sinuses are clear. MRI Head: The corpus callosum, pituitary gland clivus appear intact. Craniocervical junction appears preserved. No restricted diffusion. Single nonspecific 4 mm focus of T2 FLAIR hyperintensity involving the right temporal stem white matter. The ventricles are proportionate to the cerebral sulci. The 4th ventricle appears midline. No abnormal extra-axial fluid collection identified. There is no intracranial mass, abnormal mass effect or midline shift identified. Impression: MRI Orbits: 1. No orbital abnormality identified. MRI Head: 1. No acute intracranial abnormality. 2. Single nonspecific T2 FLAIR hyperintensity within the right temporal stem white matter region. This could represent sequela of migraine headaches or other nonspecific gliosis. Dictated by Jeremy Stout MD @ 05/27/2025 12:05:52 PM (Electronically Signed)
--- NOTE | 2025-05-27 12:30 | ED.GENADULT ---
HPI - General Adult General Date Seen: 05/27/25 Chief complaint: Eye Problems Stated complaint: pain on left eye and loosing vison Time Seen by Provider: 05/27/25 09:56 History of Present Illness HPI narrative: 34-year-old female presenting to the ER today with her . She was referred to the ER by her curing press operator. Her curing press operator's concerned that she may have optic neuritis and told the patient come to the ER to get an MRI of her brain and orbits with and without without contrast. She brought with her her paperwork from the curing press operator suggesting the testing that they want. Apparently there was going to be too much delay working with the prior authorization process for insurance company shows she was told to come straight to the ER. Patient adamantly does not MRI with contrast, citing negative contrast side effects with previous imaging studies. Patient actually notes that symptoms began several weeks ago when she had pain in her left eye and pain when looking around the left eye. Also beginning last week on or Saturday she started having his service her vision where everything seems brighter in colors are washed out. She also has a section the middle of her vision that where she is having trouble with vision. She has seen her curing press operator several times. She was initially diagnosed with dry eye but ultimately had a more comprehensive exam and apparently her curing press operator told her that there was some inflammation in her eyeball (possibly in her retina??) And she was put on some topical drops. Her curing press operator recommended that she get an MRI to look for optic neuritis. She has no history of autoimmune disease or MS. Related Data Home Medications ?Medication ?Instructions ?Recorded ?Confirmed No Known Home Medications 05/27/25 05/27/25 Allergies Allergy/AdvReac Type Severity Reaction Status Date / Time latex Allergy Intermediate Rash Verified 08/01/22 09:04 [facility] Medical History (Updated 05/27/25 @ 13:01 by Bryan Pena MD) Group B streptococcal infection during ?O98.819 - Other maternal infectious and parasitic diseases complicating , unspecified trimester (ICD-10) ?B95.1 - Streptococcus, group b, as the cause of diseases classified elsewhere (ICD-10) Surgical History (Updated 06/14/22 @ 15:51 by Kenzie Burton CNM) [place] teeth extracted ?K08.409 - Partial loss of teeth, unspecified cause, unspecified class (ICD-10) Hx of LASIK ?Z98.890 - Other specified postprocedural states (ICD-10) History of eye surgery ?Z98.890 - Other specified postprocedural states (ICD-10) Family History (Updated 06/14/22 @ 15:54 by Kenzie Burton CNM) Maternal Grandmother Diabetes Stroke Kidney disease Maternal Grandfather Diabetes Paternal Grandfather Lazy eye Mother Healthy adult Social History (Updated 06/14/22 @ 16:51 by Kenzie Burton CNM) Are you following a diet prescribed by a doctor: No Are you following a special diet: No Previous occupational history: accountant systems Highest level of school completed/degree received: Bachelor's degree Physical activity type: walking How many days of moderate to strenuous exercise, like a brisk walk, did you do in the last 7 days: 5 Smoking Status: Never smoker Caffeine: Yes (lass than 100mg per day) Exam Narrative: Exam Narrative: Constitutional: Appears well-developed and well-nourished. Active. Non-toxic appearing. Polite. Interacts well with her . HENT: Head: Atraumatic. No signs of injury. Nose: No nasal discharge. Mouth/Throat: Mucous membranes are moist. Pharynx is normal. Tonsils symmetric. Uvula midline. Airway patent. PERRLA, EOMI. No exophthalmos or enophthalmos. Conjunctiva without injection or chemosis Lids: No foreign body noted in detailed exam upper and lower lids/margins Neck: Normal range of motion. Neck supple. No adenopathy. No stridor. Cardiovascular: Normal rate and regular rhythm. No murmur heard. No murmurs, rubs, or gallops. Brisk capillary refill Pulmonary/Chest: Effort normal. No stridor. No respiratory distress. No wheezes.No rhonchi. No rales. No retractions. Musculoskeletal: Normal range of motion. No edema. No tenderness. No deformity. Neurological: Alert. Normal strength. No cranial nerve deficit or sensory deficit. Coordination normal. GCS eye subscore is 4. GCS verbal subscore is 5. GCS motor subscore is 6. Gait normal. Coordination normal. Skin: Skin is warm. No rash noted. Const: Vital Signs, click to edit/add: Vital Signs - 24 hr 05/27/25 09:38 Temperature 97.7 F Pulse Rate [Pulse Oximeter] 62 Respiratory Rate 16 Blood Pressure [Ri ght Upper Arm] 116/76 Pulse Oximetry 99 Oxygen Delivery Me thod Room Air Course Vital Signs Vital signs: Initial Vital Signs Temperature 97.7 F 05/27/25 09:38 Temperature Source Temporal Artery Scan 05/27/25 09:38 Pulse Rate 62 05/27/25 09:38 Respiratory Rate 16 05/27/25 09:38 Blood Pressure 116/76 05/27/25 09:38 Blood Pressure Mean 89 05/27/25 09:38 Blood Pressure Position Sitting 05/27/25 09:38 Pulse Oximetry 99 05/27/25 09:38 Oxygen Delivery Method Room Air 05/27/25 09:38 Vital Signs Temperature 97.7 F 05/27/25 09:38 Pulse Rate 62 05/27/25 09:38 Respiratory Rate 16 05/27/25 09:38 Blood Pressure 116/76 05/27/25 09:38 Pulse Oximetry 99 05/27/25 09:38 Oxygen Delivery Method Room Air 05/27/25 09:38 Temperature 97.7 F 05/27/25 09:38 Pulse Rate 62 05/27/25 09:38 Respiratory Rate 16 05/27/25 09:38 Blood Pressure 116/76 05/27/25 09:38 Pulse Oximetry 99 05/27/25 09:38 Oxygen Delivery Method Room Air 05/27/25 09:38 Medical Decision Making [facility] Narrative Medical decision making narrative: Pleasant 34-year-old female presenting with about a one-week history of intermittent left eye pain and about a week history of left eye visual disturbance where everything seems bright in color seems washed out. She has already been working with an curing press operator and is on topical steroids apparently for inflammation inside of her eyeball (possibly her retina? ). She came to the ER today because her curing press operator wants her to get an MRI of her brain and orbits to look for optic neuritis. She was not able to expeditiously get an outpatient MRI so came here to the ER. On the paperwork provided by the patient from her curing press operator they recommend MRI with and without contrast. However the patient does not want gadolinium contrast. I did order a noncontrast brain and orbits MRI which shows nonspecific gliosis in the temporal lobe but no evidence for clear MS and no evidence for optic neuritis. Also no evidence for any retrobulbar are hematoma or abscess or tumor. Discussed with the patient and her that sensitivity for optic neuritis can be limited without contrast but imaging studies as obtained today look fairly reassuring. Discussed options. I tried to reassure the patient that gadolinium will probably not causes side effects similar to CT contrast or when she had a gallbladder scan (sounds like HIDA scan) a few years ago. Plan of care will be to discharge the patient home. Provided with digital copies of her MRI and she will follow-up with her curing press operator tomorrow for recheck. Precautions for return to the ER reviewed. Imaging Data MRI Brain and Orbits: Attestation: I have reviewed the pertinent imaging results. Radiologist's impression: Impression: 1. There has been a medial hemiarthroplasty. No abnormal lucency associated with the implants. 2. Degenerative changes of the lateral compartment. 3. No acute fracture, dislocation or destructive process. 4. No joint effusion. 5. Atherosclerotic vascular calcifications. Discharge Plan Discharge Clinical Impression: Acute left eye pain, Vision abnormalities Patient Disposition: Home, Self-Care Condition: Stable Instructions: Eye Pain (ED) Additional Instructions: As we discussed, the MRI of your brain orbits (without contrast) looks pretty normal today. No signs of optic neuritis, tumors, or other serious causes of your eye pain. It is very important for you to have further workup because we still do not no what is causing your eye problem. Please work with your curing press operator to get a checkup for today or tomorrow. If you have worsening trouble with her vision, or any concerns, please come back to the ER right away. Prescriptions: No Action No Known Home Medications Follow Up/Referrals: Provider,Not a Local [Primary Care Provider, Family Practice] Stand Alone Forms: [employer] Info Instructions
== END 2025-05-27 13:10 | disposition home or self-care (01) ==
PROVIDERS: Emergency Provider Emergency Medicine
DX: H57.12 Ocular pain, left eye (principal); H53.9 Unspecified visual disturbance
CPT/HCPCS: 70540; 70551; 99282; 99283; 99284